=== PATIENT | male | born 1960 | race Caucasian/White ===

== ENCOUNTER 2022-08-24 11:58 | Day surgery (SDC) | payer OTHER ==
[~2022-08-24 11:58] MED LIST: ATORVASTATIN PO; LISINOPRIL PO; METFORMIN PO
[2022-08-24] MEDS ORDERED: LORTAB5 PO (14:43)
[2022-08-24 16:22] VITALS: BP 145/79
[2022-08-29] MEDS ORDERED: LORTAB5 PO (10:07)
== END 2022-08-24 16:55 | disposition home or self-care (01) | DRG 355 ==
LOC: ORM 11:58
PROVIDERS: ATTEND Surgery
PROC: 0WUF4JZ Supplement Abdominal Wall with Synthetic Substitute, Percutaneous Endoscopic Approach (ICD-10-PCS; principal; 2022-08-24)
DX: K43.2 Incisional hernia without obstruction or gangrene (principal); I10 Essential (primary) hypertension; E11.9 Type 2 diabetes mellitus without complications; F17.200 Nicotine dependence, unspecified, uncomplicated; Z79.84 Long term (current) use of oral hypoglycemic drugs
CPT/HCPCS: C1781; J0131; J0690; J1100; J2710